=== PATIENT | male | born 1970 | race Two or more races ===

== ENCOUNTER 2019-12-31 09:27 | Outpatient (CLI) | payer OTHER | END 2019-12-31 09:40 | disposition home or self-care (01) | LOC: NUCLEAR 09:27 | PROVIDERS: ATTEND Internal Medicine | DX: C81.91 Hodgkin lymphoma, unspecified, lymph nodes of head, face, and neck (principal); R59.0 Localized enlarged lymph nodes; J98.8 Other specified respiratory disorders | CPT/HCPCS: 78815; A9552 ==